=== PATIENT | male | born 1995 | race Caucasian/White ===

== ENCOUNTER 2017-09-22 14:23 | Emergency (ER) | payer OTHER ==
[2017-09-22 14:33] VITALS: TEMP 98.6
[2017-09-22 15:46] VITALS: RESP 16
[2017-09-22] MEDS ORDERED: KETOROLAC 30 MG/1 ML SDV IVP ONE (15:57)
[2017-09-22] MEDS ORDERED: METOCLOPRAMIDE 10 MG/2 ML VIAL IVP ONE (15:57)
--- NOTE | 2017-09-22 15:58 | EDPHY ---
H & P Stated Complaint: headache, weak, shakey Time Seen by Provider: 09/22/17 15:28 - Personal History Current Tetanus Diphtheria and Acellular Pertussis (TDAP): Unsure - Medical/Surgical History Hx Asthma: Yes Hx Chronic Respiratory Disease: No Hx Diabetes: No Hx Cardiac Disease: No Hx Renal Disease: No Hx Cirrhosis: No Hx Alcoholism: No Hx HIV/AIDS: No Hx Splenectomy or Spleen Trauma: No Other PMH: L SHOULDER INJ/DEPRESSION, migrains - Social History Smoking Status: Never smoked Constitutional: Initial Vital Signs Temperature (C) 37.0 C 09/22/17 14:30 Heart Rate 109 H 09/22/17 14:30 Respiratory Rate 20 09/22/17 14:30 Blood Pressure 173/119 H 09/22/17 14:30 O2 Sat (%) 95 09/22/17 14:30 O2 Delivery Mode Room Air Allergies/Adverse Reactions: lactose Allergy (Verified 09/22/17 14:26) Home Medications: Medication Instructions Recorded Albuterol 10/11/15 Amoxicillin/Clavulanate Pot 875 mg PO BID #20 tab 10/11/15 [Augmentin 875Mg] Hydrocodone/APAP 5/325 [[place] 1 - 2 tab PO Q4H PRN #10 tab 10/11/15 5/325] Sterords 09/22/17 Topamax 09/22/17 Medical Decision Making ED Course/Re-evaluation: CHIEF COMPLAINT: Migraine HISTORY OF PRESENT ILLNESS: This patient is a 23 y/o male with history of migraines complaining of new symptoms associated with his migraine including weakness and muscle spasms. The patient gets frequent migraines, but he had a 14 day migraine recently and is currently on day 4 of a steroid course. Additionally, he just began taking prophylactic Topamax. He has had muscle weakness and involuntary muscle contractions mainly in his legs but also in jaw, upper back, and hands. He is followed by Dr. Lopez, neurologist at [facility]. No fever, neck pain , chest pain, shortness of breath, vomiting, diarrhea, or other associated symptoms. REVIEW OF SYSTEMS: A 10 point review of systems was performed and is negative with the exception of the elements mentioned in the history of present illness. PHYSICAL EXAM: HR, BP, O2 Sat, RR. Temp noted General Appearance: Alert, well hydrated, appropriate, and non-toxic appearing. Head: Atraumatic without scalp tenderness or obvious injury Eyes: Pupils equal, round, reactive to light and accommodation, EOMI, no trauma , no injection. Ears: Clear bilaterally, no perforation, normal landmarks Nose: Atraumatic, no rhinorrhea, clear. Throat: There is no erythema or exudates, no lesions, normal tonsils, mucus membranes moist. Neck: Supple, 2+ carotid upstroke, nontender, no lymphadenopathy. Respiratory: No retractions, no distress, no wheezes, and no accessory muscle use. Lungs are clear to auscultation bilaterally. Cardiovascular: Regular rate and rhythm, no murmurs, rubs, or gallops. Bilateral carotid, radial, dorsalis pedis, and posterior tibial pulses intact. Good capillary refill all extremities. Gastrointestinal: Abdomen is soft, nontender, non-distended, no masses, no rebound, no guarding, no peritoneal signs. Musculoskeletal: Normal active ROM of all extremities, atraumatic. Neurological: Alert, appropriate, and interactive. The patient has normal DTRs and non-focal cranial nerves, motor, sensory, and cerebellar exam. Skin: No rashes, good turgor, no nodules on palpation. Past medical history: Migraines. Past surgical history: Noncontributory Family history: Noncontributory. Social history: Father at bedside. Student at [employer]. Single. DIFFERENTIAL DIAGNOSIS: The differential diagnosis for the patient's headache included but was not limited to subarachnoid hemorrhage, migraine headache, tension headache and infectious causes such as meningitis, pharyngitis and sinusitis. MEDICAL DECISION MAKIN23 y/o male with history of migraines presents with headache and extremity muscle weakness and spasms. Patient has recently begun taking Topamax and steroids. Topomax may cause glove and stocking syndrome. Plan to treat patient' s headache symptoms. Plan to administer 10mg IV Reglan, 425mg IV Benadryl, 30mg IV Toradol for symptom relief. Patient is feeling much better following medication administration. Plan to d/c home in good condition. He will follow up with Dr. Lopez for further evaluation and discussion of his medication regimen. He is comfortable with this plan. - Data Points Medications Given: Discontinued Medications Diphenhydramine HCl (Benadryl Injection) 25 mg IVP EDNOW ONE Stop: 03/16/18 15:58 Last Admin: 09/22/17 16:23 Dose: 25 mg Ketorolac Tromethamine (Toradol) 30 mg IVP EDNOW ONE Stop: 09/22/17 15:58 Last Admin: 09/22/17 16:23 Dose: 30 mg Metoclopramide HCl (Reglan Injection) 10 mg IVP EDNOW ONE Stop: 09/22/17 15:58 Last Admin: 09/22/17 16:24 Dose: 10 mg Departure - Departure Disposition: Home, Routine, Self-Care Clinical Impression: Migraine Qualifiers: Migraine type: other Status migrainosus presence: without status migrainosus Intractability: not intractable Qualified Code(s): G43.809 - Other migraine, not intractable, without status migrainosus Condition: Good Instructions: Migraine Headache (ED) Additional Instructions: 1. Continue taking your medications as prescribed. 2. Follow up with Dr. Lopez for further evaluation. 3. Return to the emergency department for recurrence of headache, nausea, vomiting, numbness, weakness, neck pain, fever or other concerns. Referrals: Susana Lopez DO [Non Staff and Non MD] - As per Instructions Report Scribed for: Pablo Barrett Report Scribed by: Eileen Costa Date of Report: 09/22/17 Time of Report: 17:48
[2017-09-22 17:41] VITALS: BP 134/86; PULSE 83; O2SAT 98
== END 2017-09-22 17:40 | disposition home or self-care (01) ==
DX: G43.809 Other migraine, not intractable, without status migrainosus (principal); J45.909 Unspecified asthma, uncomplicated
CPT/HCPCS: 96374; J1200; J1885; J2765